=== PATIENT | female | born 1955 | race Caucasian/White ===

== ENCOUNTER → 2018-10-30 | Outpatient (CLI) | payer OTHER ==
--- NOTE | 2018-10-30 13:05 | KCIC ---
EXAM: Bilateral knees, 4 views. HISTORY: Pain. COMPARISON: None. FINDINGS: 4 views of both knees are obtained. There is bilateral medial compartment joint space narrowing with degenerative subchondral sclerosis and marginal osteophytosis. There is mild bilateral lateral and moderate bilateral patellofemoral compartment spurring. There is slight enthesopathy along the superior patellae. There is trace bilateral joint fluid without significant joint effusions. There is bilateral genu varus. IMPRESSION: 1. Severe bilateral medial, moderate bilateral patellofemoral and mild bilateral lateral compartment osteoarthritis of the knees. 2. Mild bilateral genu varus. Electronically signed by: Luz Griffiths MD (10/30/2018 1:03 PM) [facility]
== END | disposition home or self-care (01) ==
LOC: KCIC 10:55
PROVIDERS: ATTEND Specialist
DX: M17.0 Bilateral primary osteoarthritis of knee (principal); M21.162 Varus deformity, not elsewhere classified, left knee; M21.161 Varus deformity, not elsewhere classified, right knee; M76.892 Other specified enthesopathies of left lower limb, excluding foot; M76.891 Other specified enthesopathies of right lower limb, excluding foot
CPT/HCPCS: 73564

== ENCOUNTER → 2018-11-02 | Outpatient (CLI) | payer OTHER ==
--- NOTE | 2018-11-02 15:28 | KCIC ---
Bilateral digital screening mammograms: Reason for examination: Routine screening. No previous examinations available for comparison. New baseline. Interpretation is made with the benefit of CAD. The skin and nipples show no abnormalities. No abnormal lymph nodes are seen. The breast parenchyma is predominantly fatty. (Breast density: Category A.) There are residual capsules bilaterally from previous implants with removal. There is focal density suggesting residual silicone inferiorly at the capsule on the right. There are no dominant masses, suspicious calcifications or architectural distortions. Impression: No evidence of malignancy. Recommend routine screening. BI-RADS Category 2: Benign. "Our facility is accredited by the [employer] Mammography Program." This patient's information has been entered into a reminder system for the patient to be notified with the results of her examination and a target date for the next mammogram. Electronically signed by: Sylvie Lechuga MD (11/02/2018 3:25 PM) [facility]
== END | disposition home or self-care (01) ==
LOC: KCIC MAMMO 13:41
PROVIDERS: ATTEND Internal Medicine
DX: Z12.31 Encounter for screening mammogram for malignant neoplasm of breast (principal)
CPT/HCPCS: 77067

== ENCOUNTER → 2019-06-12 | Outpatient (CLI) | payer OTHER ==
--- NOTE | 2019-06-14 18:35 | RESP ---
DATE OF SERVICE: 06/12/2019 ATTENDING PHYSICIAN: Benny Cleveland MD The patient underwent full pulmonary function testing dated 06/12/2019. The FEV1 to FVC ratio was 80%. FEV1 was normal at 91% of predicted, FVC was likewise normal. Total lung capacity was elevated at 6.39 liters at 120% of predicted. Diffusion capacity was preserved at 107% of predicted. IMPRESSION: 1. No evidence of airflow limitation. 2. No evidence of restrictive lung disorder. 3. Preserved diffusion capacity. ANGELA AGUILA MD DR: MIRTHA/robert JOB#: [id number] / [id number]
== END | disposition home or self-care (01) ==
LOC: PF 10:55
PROVIDERS: ATTEND Internal Medicine Cardiovascular Disease
DX: R06.00 Dyspnea, unspecified (principal)
CPT/HCPCS: 94010; 94729

== ENCOUNTER → 2019-07-02 | Outpatient (CLI) | payer OTHER ==
[2019-07-02 09:06] LABS: BASO # 0.1 x10^3/uL (0.0-0.2); BASO % 1 % (0-3); EOS # 0.2 x10^3/uL (0.0-0.7); EOS % 4 % (0-3); HEMATOCRIT 42.5 % (36.0-47.0); HEMOGLOBIN 14.2 g/dL (12.0-15.5); LYMPH # 1.3 x10^3/uL (1.0-4.8); LYMPH % 22 % (24-48); MEAN CORPUSCULAR HEMOGLOBIN 30 pg (25-35); MEAN CORPUSCULAR HGB CONC 34 g/dL (31-37); MEAN CORPUSCULAR VOLUME 89 fL (79-100); MONO # 0.5 x10^3/uL (0.0-1.1); MONO % 8 % (0-9); NEUT # 3.9 x10^3/uL (1.8-7.7); NEUT % 65 % (31-73); PLATELET COUNT 211 x10^3/uL (140-400); RED BLOOD COUNT 4.76 x10^6/uL (3.50-5.40); RED CELL DISTRIBUTION WIDTH 12.8 % (11.5-14.5)
--- NOTE | 2019-07-02 09:06 | CARD ---
MR#: [id number] Date of Study: 07/02/2019 Ordering Physician: POOJA SANTOS, Referring Physician: POOJA SANTOS, Tech: Claudine Cortez ZELDA APPROVED REPORT EXAM: Two-dimensional and M-mode echocardiogram with Doppler and color Doppler. Other Information Quality : Good INDICATION Dyspnea 2D DIMENSIONS RVDd2.6 (2.9-3.5cm)Left Atrium(2D)3.5 (1.6-4.0cm) IVSd1.2 (0.7-1.1cm)Aortic Root(2D)2.8 (2.0-3.7cm) LVDd4.2 (3.9-5.9cm)LVOT Diameter2.1 (1.8-2.4cm) PWd1.2 (0.7-1.1cm)LVDs2.2 (2.5-4.0cm) FS (%) 30.0 %SV60.4 ml LVEF(%)60.0 (>50%) Aortic Valve AoV Peak Ga.104.7cm/sAoV VTI22.8cm AO Peak GR.4.4mmHgLVOT Peak Ga.106.5cm/s AO Mean GR.3mmHgAVA (VMAX)3.63cm2 NANCY (VTI)3.90cm2 Mitral Valve MV E Otvncawg22.6cm/sMV DECEL [id number] MV A Pkbiiido37.7cm/sE/A Ratio0.8 Tricuspid Valve TR P. Eoufbcqr467ji/sRAP HBHJAACB3nvVz TR Peak Gr.10lcCoTPXA43haRx Pulmonary Vein S1 Kekiylaj91.9cm/sD2 Fzkffjyo01.4cm/s LEFT VENTRICLE The left ventricle is normal size. There is mild concentric left ventricular hypertrophy. The left ve ntricular systolic function is normal and the ejection fraction is within normal range. The Ejection Fraction is 55%. There is normal LV segmental wall motion. Transmitral Doppler flow pattern is Grade I-abnormal relaxation pattern. RIGHT VENTRICLE The right ventricle is normal size. The right ventricular systolic function is normal. ATRIA The left atrium size is normal. The right atrium size is normal. The interatrial septum is intact wit h no evidence for an atrial septal defect or patent foramen ovale as noted on 2-D or Doppler imaging. AORTIC VALVE The aortic valve is calcified but opens well. Doppler and Color Flow revealed no significant aortic r egurgitation. There is no significant aortic valvular stenosis. MITRAL VALVE The mitral valve is normal in structure and function. There is no evidence of mitral valve prolapse. There is no mitral valve stenosis. Doppler and Color-flow revealed trace mitral regurgitation. TRICUSPID VALVE The tricuspid valve is normal in structure and function. Doppler and Color Flow revealed trace tricus pid regurgitation. The PA pressure was estimated at 28 mmHg. There is no tricuspid valve stenosis. PULMONIC VALVE The pulmonic valve is not well visualized. Doppler and Color Flow revealed no pulmonic valvular regur gitation. There is no pulmonic valvular stenosis. GREAT VESSELS The aortic root is normal in size. The ascending aorta is normal in size. The IVC is normal in size a nd collapses >50% with inspiration. PERICARDIAL EFFUSION There is no evidence of significant pericardial effusion. Critical Notification Critical Value: No <Conclusion> The left ventricular systolic function is normal and the ejection fraction is within normal range. Th e Ejection Fraction is 55%. There is normal LV segmental wall motion. Signed by : Pooja Santos, Electronically Approved : 07/02/2019 09:06:01
[2019-07-02 09:20] LABS: ALBUMIN 3.6 g/dL (3.4-5.0); ALBUMIN/GLOBULIN RATIO 0.9 (1.0-1.7); CALCIUM 9.4 mg/dL (8.5-10.1); CREATININE 0.8 mg/dL (0.6-1.0); GFR 72.7; POTASSIUM 4.7 mmol/L (3.5-5.1); TOTAL BILIRUBIN 0.3 mg/dL (0.2-1.0); TOTAL PROTEIN 7.5 g/dL (6.4-8.2)
[2019-07-02 09:28] LABS: CHOLESTEROL/HDL RATIO 3.7
== END ==
LOC: ECHO 07:51
PROVIDERS: ATTEND Internal Medicine Cardiovascular Disease
DX: I35.8 Other nonrheumatic aortic valve disorders (principal); I70.0 Atherosclerosis of aorta; I51.7 Cardiomegaly; Z72.0 Tobacco use
CPT/HCPCS: 36415; 80053; 80061; 83721; 84443; 85025; 93306

== ENCOUNTER → 2021-03-02 | Outpatient (CLI) | payer OTHER ==
--- NOTE | 2021-03-02 14:55 | KCIC ---
Bilateral digital screening mammograms: Reason for examination: Routine screening. History of breast implants with rupture and removal. Comparison is made to previous study dated 11/02/2018. Interpretation is made with the benefit of CAD. The skin and nipples show no abnormalities. No abnormal lymph nodes are seen. The breast parenchyma i s predominantly fatty. (Breast density: Category A.) There are changes bilaterally from breast implan t removal of the rupture with some residual capsular density present. There are no new dominant shawn s, suspicious calcifications or architectural distortions. Impression: No evidence of malignancy. Recommend routine screening. BI-RADS Category 2: Benign. "Our facility is accredited by the [employer] Mammography Program." This patient's information has been entered into a reminder system for the patient to be notified wit h the results of her examination and a target date for the next mammogram. Electronically signed by: Sylvie Lechuga MD (03/02/2021 2:52 PM) [id number]
== END ==
LOC: KCIC MAMMO 13:58
PROVIDERS: ATTEND Internal Medicine
DX: Z12.31 Encounter for screening mammogram for malignant neoplasm of breast (principal)
CPT/HCPCS: 77067